=== PATIENT | female | born 1955 ===

== ENCOUNTER 2025-09-10 10:54 | Outpatient (CLI) | payer MEDICARE, OTHER ==
[2025-09-10 12:45] LABS: Estimated GFR - POC 69.0
== END 2025-09-10 10:55 | disposition home or self-care (01) ==
LOC: CSHMRI 10:54
PROVIDERS: ATTEND Internal Medicine Gastroenterology
DX: K50.90 Crohn's disease, unspecified, without complications (principal); R43.9 Unspecified disturbances of smell and taste; K56.699 Other intestinal obstruction unspecified as to partial versus complete obstruction; K63.2 Fistula of intestine
CPT/HCPCS: 36415; 74183; 82565